=== PATIENT | female | born 1985 | race Caucasian/White ===

== ENCOUNTER 2017-06-20 19:23 | Emergency (ER) | payer BC ==
[2017-06-20 19:51] VITALS: BP 134/76
--- NOTE | 2017-06-20 19:53 | UC ---
Throat Pain/Nasal Alan HPI - HPI Summary HPI Summary: 31 y/o female presents to the urgent care c/o sore throat and neck swelling and pain w/ swallowing since yesterday. Pain is 8/10, specially on the left side with left ear pressure and mild nasal discharge. She took Ibuprofen 400mg PO this morning. Pain decrease for a while. Pt denies fever, cough , SOB, chest pain, N/V/D, abdominal pain. - History of Current Complaint Chief Complaint: UCRespiratory Stated Complaint: ST Time Seen by Provider: 06/20/17 19:50 Hx Obtained From: Patient Hx Last Menstrual Period: 05/29/17 ?: No Onset/Duration: Gradual Onset, Lasting Days - 1 day, Still Present Severity: Moderate Pain Intensity: 5 Pain Scale Used: 0-10 Numeric Cough: None Associated Signs & Symptoms: Positive: Dysphagia, Nasal Discharge - mild. Negative: Fever, Vomiting, Rash - Epiglottits Risk Factors Epiglottis Risk Factors: Negative - Allergies/Home Medications Allergies/Adverse Reactions: Allergies Allergy/AdvReac Type Severity Reaction Status Date / Time No Known Allergies Allergy Verified 06/20/17 19:51 Home Medications: Home Medications Amitriptyline TAB* [Elavil TAB*] 25 mg PO BEDTIME 06/20/17 [History Confirmed ] Sertraline* [Zoloft*] 50 mg PO DAILY 06/20/17 [History Confirmed 06/20/17] PMH/Surg Hx/FS Hx/Imm Hx Previously Healthy: Yes Neurological History: Migraine Psychological History: Anxiety, Depression - Surgical History Surgical History: None - Family History Known Family History: Positive: Cardiac Disease, Hypertension, Diabetes - Social History Occupation: Employed Full-time Lives: With Family Alcohol Use: None Substance Use Type: None Smoking Status (MU): Former Smoker Type: Cigarettes Amount Used/How Often: 1/2 PK PER WK Length of Time of Smoking/Using Tobacco: 10 YRS Have You Smoked in the Last Year: Yes - Immunization History Most Recent Influenza Vaccination: none Review of Systems Constitutional: Negative Skin: Negative Eyes: Negative ENT: Sore Throat, Ear Ache, Nasal Discharge - mild Respiratory: Negative Cardiovascular: Negative Gastrointestinal: Negative Genitourinary: Negative Motor: Negative Neurovascular: Negative Musculoskeletal: Negative Neurological: Negative Psychological: Negative Is Patient Immunocompromised?: No All Other Systems Reviewed And Are Negative: Yes Physical Exam Triage Information Reviewed: Yes Vital Signs: Initial Vital Signs Temp 99.2 F 06/20/17 19:44 Pulse 106 06/20/17 19:44 Resp 16 06/20/17 19:44 BP 134/76 06/20/17 19:44 Pulse Ox 100 06/20/17 19:44 - Additional Comments VITAL SIGNS: Reviewed. GENERAL: Patient is a well developed and nourished female who is sitting comfortable in the examining table. Patient is not in any acute respiratory distress. HEAD AND FACE: No signs of trauma. No ecchymosis, hematomas or skull depressions. No sinus tenderness. EYES: PERRLA, EOMI x 2, No injected conjunctiva, no nystagmus. No photophobia. EARS: Hearing grossly intact. Ear canals and tympanic membranes are within normal limits. MOUTH: Positive pharynx with erythema LF >RT, no exudates, positive palatal petechiae. Left tonsillar enlargement without exudate. Uvula in midline. NECK: Supple, trachea is midline, Positive left side anterior cervical lymphadenopathy, no JVD, no carotid bruit, no c-spine tenderness, neck with full ROM. CHEST: Symmetric, no tenderness at palpation LUNGS: Clear to auscultation bilaterally. No wheezing or crackles. CVS: Regular rate and rhythm, S1 and S2 present, no murmurs or gallops appreciated. ABDOMEN: Soft, non-tender. No signs of distention. No rebound no guarding, and no masses palpated. Bowel sounds are normal. EXTREMITIES: FROM in all major joints, no edema, no cyanosis or clubbing. NEURO: Alert and oriented x 3. No acute neurological deficits. Speech is normal and follows commands. SKIN: Dry and warm Throat Pain/Nasal Course/Dx - Course Course Of Treatment: 31 y/o female presents to the urgent care c/o sore throat and neck swelling and pain w/ swallowing since yesterday. Pain is 8/10, specially on the left side with left ear pressure and mild nasal discharge. She took Ibuprofen 400mg PO this morning. Pain decrease for a while. Pt denies fever , cough , SOB, chest pain, N/V/D, abdominal pain.Hx obtained - Differential Dx/Diagnosis Differential Diagnosis/HQI/PQRI: Laryngitis, Mononucleosis, Otitis Media, Pharyngitis, Tonsillitis, URI Provider Diagnoses: 1- Viral pharyngitis Discharge - Discharge Plan Condition: Stable Disposition: HOME Prescriptions: Ibuprofen TAB* [Motrin TAB* 800 MG] 800 mg PO Q6H #20 tab Patient Education Materials: Pharyngitis (ED) Referrals: No Primary Care Phys,NOPCP [Primary Care Provider] - [facility] [place] [facility] [Outside] - If Needed Additional Instructions: 1-Please take ibuprofen PO q6-8hrs prn as instructed after meals to alleviate pain and swelling. Increase fluid intake, eat well, rest and avoid strenuous exercise 2-If symptoms do not improve or worsen please return to the urgent care or f/u with your PCP for further evaluation and treatment.
[2017-06-20] MEDS ORDERED: Ibuprofen TAB* 400 MG PO ONE (20:01)
== END 2017-06-20 20:38 | disposition home or self-care (01) ==
LOC: UCCORT 19:23
DX: J02.9 Acute pharyngitis, unspecified (principal); Z87.891 Personal history of nicotine dependence
CPT/HCPCS: 87651; 99212; A9270-GY; G0463

== ENCOUNTER 2017-09-27 16:18 | Emergency (ER) | payer BC ==
[2017-09-27 17:09] VITALS: BP 146/78
[2017-09-27] MEDS ORDERED: Morphine INJ* 2 MG/ML 1 ML CARPUJECT ONE (19:05)
[2017-09-27] MEDS ORDERED: Ketorolac INJ* 30 MG/ML 1 ML VIAL IM ONE (19:06)
[2017-09-27] MEDS ORDERED: Cyclobenzaprine TAB* 10 MG PO ONE (19:07)
--- NOTE | 2017-09-27 19:07 | UC ---
Back Pain HPI - HPI Summary HPI Summary: pt presents with right low back pain since Tuesday. Pt states started suddenly as was getting out of car and twisted. Pt denies radiation to LE. No changes to bowel or bladder. Pt has been taking Motrin/apap without relief. Pt without h/o back pain. Pt reports back spasms - worse with change in position and lying flat. No h/o similar no direct trauma Pt's medications reviewed this visit - History of Current Complaint Chief Complaint: UCBackPain Stated Complaint: BACK PAIN Time Seen by Provider: 09/27/17 18:51 Hx Obtained From: Patient Hx Last Menstrual Period: 09/20/17 ?: No Onset/Duration: Sudden Onset Timing: Lasting Days Severity Initially: Moderate Severity Currently: Moderate Pain Intensity: 8 Pain Scale Used: 0-10 Numeric Back Pain: Is Discrete @ - right low back Character: Spasmodic Aggravating Factor(s): Movement, Lifting, Bending, Walking Alleviating Factor(s): Rest Associated Signs And Symptoms: Positive: Negative - Allergies/Home Medications Allergies/Adverse Reactions: Allergies Allergy/AdvReac Type Severity Reaction Status Date / Time No Known Allergies Allergy Verified 09/27/17 17:10 Home Medications: Home Medications Ibuprofen TAB* [Motrin TAB* 800 MG] 800 mg PO Q6H 09/27/17 [History Confirmed ] PMH/Surg Hx/FS Hx/Imm Hx Previously Healthy: Yes - Surgical History Surgical History: None - Family History Known Family History: Positive: Cardiac Disease, Hypertension, Diabetes - Social History Occupation: Employed Full-time Lives: With Family Alcohol Use: None Substance Use Type: None Smoking Status (MU): Current Some Day Smoker Type: Cigarettes Amount Used/How Often: 1/2 PK PER WK Length of Time of Smoking/Using Tobacco: 10 YRS Have You Smoked in the Last Year: Yes - Immunization History Most Recent Influenza Vaccination: none Review of Systems Constitutional: Negative Skin: Negative Motor: Decreased ROM Musculoskeletal: Other: - back spasm All Other Systems Reviewed And Are Negative: Yes Physical Exam Triage Information Reviewed: Yes Appearance: Well-Nourished, Pain Distress Vital Signs: Initial Vital Signs Temp 97.8 F 09/27/17 17:03 Pulse 83 09/27/17 17:03 Resp 20 09/27/17 17:03 BP 146/78 09/27/17 17:03 Pulse Ox 100 02/06/18 17:03 Vital Signs Reviewed: Yes Eye Exam: Normal Eyes: Positive: Conjunctiva Clear ENT Exam: Normal ENT: Positive: Normal ENT inspection, Hearing grossly normal, TMs normal Dental Exam: Normal Neck exam: Normal Neck: Positive: Supple, Nontender, No Lymphadenopathy Respiratory Exam: Normal Respiratory: Positive: Chest non-tender, Lungs clear, Normal breath sounds, No respiratory distress, No accessory muscle use Cardiovascular Exam: Normal Cardiovascular: Positive: RRR, No Murmur Abdominal Exam: Normal Abdomen Description: Positive: Nontender, No Organomegaly, Soft Bowel Sounds: Positive: Present Musculoskeletal: Positive: Other: - no pain c/t/l/s + TTP right paraspinal lumbar + SLE + flex/ext knee, ankle + great toe extension Neurological Exam: Normal Neurological: Positive: Alert, Other: - + gross sensation throughout b/l LE 2+ patellar b/l no clonus Psychological Exam: Normal Psychological: Positive: Normal Response To Family Skin Exam: Normal Re-Evaluation - Re-Evaluation First Eval Change: Improved - pt markedly improved - so to drive reviewed with pt analgesia , muscle relaxants precaution heat stretch agreement and understanding of plan work note Back Pain Course/Dx - Course Course Of Treatment: Pt with right low back pain, spasm since Sat. Pt with palpable spasm, no bone pain. Will give analgseia, muscle relaxant. close reassessment. pt's SO will drive pt. pt comfortable and in agreement with plan - Differential Dx/Diagnosis Provider Diagnoses: lumbar muscle spasm Discharge - Discharge Plan Condition: Stable Disposition: HOME Prescriptions: Cyclobenzaprine TAB* [Flexeril 10 MG TAB*] 10 mg PO TID PRN #15 tab PRN Reason: Spasms HYDROcodone/ACETAMIN 5-325 MG* [Pauline 5-325 TAB*] 1 - 2 tab PO Q6H PRN #20 tab MDD 8 PRN Reason: Pain Patient Education Materials: Muscle Spasm (ED), Back Pain (ED) Forms: *Work Release Referrals: Liliya Pratt MD [Primary Care Provider] - 2 Days Additional Instructions: - Okay to alternate ibuprofen (Advil, Motrin) 600mg and Tylenol product ( Tylenol or Pauline) every 3hours as needed for pain. Take with food. Do NOT take for more than 4-[address], operate machinery or drink alcohol while taking Pauline. This medication may cause constipation - use a stool softner as needed -Okay to take Zofran, medication for nausea - 15 minutes before Pauline as needed -Take flexeril - muscle relaxer as prescribed - do not drive while taking this medication -Apply moist heat to your back for 20 minutes at a time, 4-5 times a day. Once your muscles are warm, slow gentle stretching exercises are important -Contact your doctor today to arrange a follow-up appointment later this week -If you pain is uncontrolled or you develop difficulty controlling your bowel or bladder, go to an emergency department for further treatment
== END 2017-09-27 20:10 | disposition home or self-care (01) ==
LOC: UCCORT 16:18
DX: M62.830 Muscle spasm of back (principal); F17.210 Nicotine dependence, cigarettes, uncomplicated
CPT/HCPCS: 96372; 99212; A9270-GY; G0463; J1885; J2270

== ENCOUNTER 2018-06-22 09:22 | Emergency (ER) | payer BC ==
[2018-06-22 11:01] VITALS: BP 132/86
--- NOTE | 2018-06-22 11:38 | ED ---
Throat Pain/Nasal Congestion - HPI Summary HPI Summary: 32 yr old with runny nose and congestion for about ten days and then 4 days of left ear pain, and now bloody and pus discharge from the left ear. No fever or chills. No dizziness. She has decreased hearing out of the left ear. - History of Current Complaint Chief Complaint: UCEar Time Seen by Provider: 06/22/18 11:23 - Allergies/Home Medications Allergies/Adverse Reactions: Allergies Allergy/AdvReac Type Severity Reaction Status Date / Time No Known Allergies Allergy Verified 06/22/18 10:56 Home Medications: Home Medications Escitalopram Oxalate [Lexapro 10 mg] 1 tab DAILY 06/22/18 [History Confirmed 09/08] PMH/Surg Hx/FS Hx/Imm Hx Infectious Disease History: No Infectious Disease History: Denies: Traveled Outside the [place] in Last 30 Days - Family History Known Family History: Positive: Cardiac Disease, Hypertension, Diabetes - Social History Occupation: Employed Full-time Alcohol Use: None Substance Use Type: Reports: None Smoking Status (MU): Former Smoker Type: Cigarettes Amount Used/How Often: 1/2 PK PER WK Length of Time of Smoking/Using Tobacco: 10 YRS Have You Smoked in the Last Year: Yes Review of Systems Constitutional: Negative Positive: Ear Ache, Nasal Discharge All Other Systems Reviewed And Are Negative: Yes Physical Exam Triage Information Reviewed: Yes Vital Signs On Initial Exam: Initial Vitals Temp Pulse Resp BP Pulse Ox 97.7 F 68 16 132/86 100 06/22/18 10:57 06/22/18 10:57 06/22/18 10:57 06/22/18 10:57 06/22/18 10:57 Vital Signs Reviewed: Yes Appearance: Positive: Well-Appearing, No Pain Distress Skin: Positive: Warm, Skin Color Reflects Adequate Perfusion Eyes: Positive: EOMI ENT: Positive: Nasal congestion, TM red - left with perforation of left TM, and some slight yellow discharge.. Negative: Sinus tenderness Neck: Positive: Nontender Respiratory/Lung Sounds: Positive: Clear to Auscultation, Breath Sounds Present Cardiovascular: Positive: RRR. Negative: Murmur Abdomen Description: Positive: Nontender Musculoskeletal: Positive: Strength/ROM Intact Neurological: Positive: Sensory/Motor Intact, Alert, Oriented to Person Place, Time, CN Intact II-III Psychiatric: Positive: Normal - Kaz Coma Scale Best Eye Response: 4 - Spontaneous Best Motor Response: 6 - Obeys Commands Best Verbal Response: 5 - Oriented Coma Scale Total: 15 Diagnostics - Vital Signs Vital Signs Temp Pulse Resp BP Pulse Ox 06/22/18 10:57 97.7 F 68 16 132/86 100 - Laboratory Lab Statement: Any lab studies that have been ordered have been reviewed, and results considered in the medical decision making process. EENT Course/Dx - Course Course Of Treatment: 32 yr old with OM with perforation. Plan DC home on ofloxacin drops and augmentin. FU with PMD, and referral to ENT made. - Diagnoses Provider Diagnoses: Otitis media, Perforation of tympanic membrane Discharge - Sign-Out/Discharge Documenting (check all that apply): Patient Departure All imaging exams completed and their final reports reviewed: No Studies - Discharge Plan Condition: Good Disposition: HOME Prescriptions: Amoxicillin/Clavulanate TAB* [Augmentin TAB 875*] 875 mg PO BID #20 tab Ofloxacin 0.3% (Ear Drop)* [Floxin 0.3% OTIC.TOMMY (Ear Drop)] 5 drop LEFT EAR DAILY #1 btl Patient Education Materials: Ruptured Eardrum (ED), Ear Infection (ED) Referrals: Liliya Pratt MD [Primary Care Provider] - Sam Lemon MD [Medical Doctor] - 3 Days Yinka Jorge MD [Medical Doctor] - 3 Days - Billing Disposition and Condition Condition: GOOD Disposition: Home
== END 2018-06-22 11:42 | disposition home or self-care (01) ==
LOC: UCCORT 09:22
DX: H66.92 Otitis media, unspecified, left ear (principal); H72.92 Unspecified perforation of tympanic membrane, left ear; Z87.891 Personal history of nicotine dependence
CPT/HCPCS: 99212; G0463

== ENCOUNTER 2019-01-25 14:12 | Emergency (ER) | payer BC ==
[2019-01-25 15:37] VITALS: BP 136/68
--- NOTE | 2019-01-25 15:48 | UC ---
Back Pain HPI - HPI Summary HPI Summary: 33 y/o female presents to the urgent care c/o B/L lower back pain for the pst 2 days. Pt states she works in a [employer] and she had to do a lot of heavy lifting 2 days ago and it triggered her back pain. Pt reports Hx of lower back pain s/p fall 16 years ago. She states sometimes her back pain and back spasm is exacerbated w/ certain movements. Pt states she has been taken Ibuprofen 400mg PO /Tylenol daily to alleviate symptoms. She denies fever, saddle anesthesiaa - History of Current Complaint Chief Complaint: UCBackPain Stated Complaint: LOWER BACK PAIN Time Seen by Provider: 01/25/19 15:47 Hx Obtained From: Patient Hx Last Menstrual Period: 01/23/2019 ?: No Onset/Duration: Gradual Onset, Lasting Days - 2 days, Still Present, Worse Since - this morning Timing: Constant Severity Initially: Mild Severity Currently: Moderate Pain Intensity: 8 Pain Scale Used: 0-10 Numeric Back Pain: Is Discrete @ - B/L lower back Character: Sharp, Spasmodic Aggravating Factor(s): Movement, Lifting, Bending Alleviating Factor(s): Rest, OTC Meds Associated Signs And Symptoms: Positive: Negative. Negative: Swelling, Redness , Bruising, Fever, Weakness, Numbness, Tingling, Abdominal Pain, Flank Pain, Bladder Incontinence, Bowel Incontinence, Weight Loss, Pain with Weight Bearing Related History: Similar Episode Dx As - Back spasm - Risk Factors AAA Risk Factors: Negative TAD Risk Factors: Negative Cauda Equina Risk Factors: Negative Epidural Abscess Risk Factors: Negative - Allergies/Home Medications Allergies/Adverse Reactions: Allergies Allergy/AdvReac Type Severity Reaction Status Date / Time No Known Allergies Allergy Verified 01/25/19 15:30 Home Medications: Home Medications Acetaminophen TAB* [Tylenol TAB*] 650 mg PO Q4H PRN 01/25/19 [History Confirmed 01/25/19] PMH/Surg Hx/FS Hx/Imm Hx Previously Healthy: Yes - Pt denies PMHX - Surgical History Surgical History: None - Family History Known Family History: Positive: Cardiac Disease, Hypertension, Diabetes - Social History Occupation: Employed Full-time Lives: With Family Alcohol Use: None Substance Use Type: None Smoking Status (MU): Former Smoker Type: Cigarettes Amount Used/How Often: 1/2 PK PER WK Length of Time of Smoking/Using Tobacco: 10 YRS Have You Smoked in the Last Year: Yes - Immunization History Most Recent Influenza Vaccination: none Most Recent Tetanus Shot: UTD Review of Systems All Other Systems Reviewed And Are Negative: Yes Constitutional: Positive: Negative Skin: Positive: Negative Eyes: Positive: Negative ENT: Positive: Negative Respiratory: Positive: Negative Cardiovascular: Positive: Negative Gastrointestinal: Positive: Negative Genitourinary: Positive: Negative Motor: Positive: Negative Neurovascular: Positive: Negative Musculoskeletal: Positive: Decreased ROM - lower back, Other: - acute lower back pain Neurological: Positive: Negative Psychological: Positive: Negative Is Patient Immunocompromised?: No Physical Exam - Summary Physical Exam Summary: Vital Signs Reviewed: Yes Appearance: Well-Appearing, Well-Nourished, female sitting in the examining table w/o any apparent distress. Eyes: Positive: Conjunctiva Clear - PERRLA, EOMI. ENT: Positive: Normal ENT inspection, Hearing grossly normal, Pharynx normal, TMs normal, Uvula midline Neck: Positive: Supple, Nontender, No Lymphadenopathy Respiratory: Positive: Chest non-tender, Lungs clear, Normal breath sounds, No respiratory distress Cardiovascular: Positive: RRR, No Murmur, Pulses Normal, Brisk Capillary Refill Abdomen Description: Positive: Nontender, No Organomegaly, Soft. Negative: CVA Tenderness (R), CVA Tenderness (L) Bowel Sounds: Positive: Present Musculoskeletal: Positive: Strength Intact, BACK: Patient walked into the urgent care room with symmetric ambulation, No signs of limping, antalgic, able to bear weight. No signs of trauma, No masses palpated. Point tenderness at the level of L5-S1, No CVAT, no flank ecchymosis . No sacroiliac notch tenderness, No saddle anesthesia.ROM: limited due to pain, Straight Leg Raise: negative. Patellar reflexes: brisk, symmetric Muscle strength lower extremities. Dorsiflexion/ plantar flexion of ankles. Heel/ toe walk. Lower extremities: Femoral, popliteal, posterior tibial, and dorsalis pedis pulses WNL. Pt refuse rectal exam Neurological: Positive: Alert, Muscle Tone Normal Psychological Exam: Normal Skin Exam: Normal Triage Information Reviewed: Yes Vital Signs: Initial Vital Signs Temp 97.8 F 01/25/19 15:33 Pulse 95 01/25/19 15:33 Resp 12 01/25/19 15:33 BP 136/68 01/25/19 15:33 Pulse Ox 100 01/25/19 15:33 Back Pain Course/Dx - Course Course Of Treatment: IMPRESSION: #. Degenerative spondylosis and facet joint osteoarthritis. - Differential Dx/Diagnosis Differential Diagnosis/HQI/PQRI: Compressive Cord Syndrome, Herniated Disc, Renal Colic, Strain, Sprain, Other Provider Diagnosis: Back strain, Degenerative disc disease, Osteoarthritis Discharge - Sign-Out/Discharge Documenting (check all that apply): Patient Departure - D/C home All imaging exams completed and their final reports reviewed: Yes - Discharge Plan Condition: Stable Disposition: HOME Prescriptions: Cyclobenzaprine TAB* [Flexeril 10 MG TAB*] 10 mg PO TID PRN #21 tab PRN Reason: Spasms - Back Ibuprofen TAB* [Motrin TAB* 800 MG] 800 mg PO Q6H PRN #30 tab PRN Reason: back pain methylPREDNISolone [Medrol Dosepak 4 MG*] 4 mg PO .SEE REMEDIOS INSTRUCTION #1 remedios Patient Education Materials: Degenerative Disc Disease (ED), Low Back Strain ( ED) Forms: *Work Release Referrals: Liliya Pratt MD [Primary Care Provider] - 1 Week Sharon Graham Ae RN [Registered Nurse] - 3 Days Additional Instructions: 1- Please take Ibuprofen PO as directed after meals for pain, starting tomorrow since you were given Toradol IM inj today. Take Medrol dose remedios as directed to alleviate symptoms 2- Take Flexeril PO as directed for muscle spasm. Please do not drive while taking the medication. 3- Avoid strenuous exercise or heavy lifting. 4- Please call Spinal Nurse Navigator: Char Graham: [phone] for further management of your Degenerative disc disease and spondylosis - Billing Disposition and Condition Condition: STABLE Disposition: Home
[2019-01-25] MEDS: Ketorolac INJ* 30 MG/ML 1 ML VIAL IM ONE (16:24)
== END 2019-01-25 17:44 | disposition home or self-care (01) ==
LOC: UCCORT 14:12
DX: S33.5XXA Sprain of ligaments of lumbar spine, initial encounter (principal); X50.0XXA Overexertion from strenuous movement or load, initial encounter; Y92.9 Unspecified place or not applicable; M51.36 Other intervertebral disc degeneration, lumbar region; M47.9 Spondylosis, unspecified
CPT/HCPCS: 72110; 96372; 99211; G0463; J1885